=== PATIENT | male | born 1990 | race Caucasian/White ===

== ENCOUNTER 2023-12-21 18:18 | Emergency (ER) | payer SELFPAY ==
[2023-12-21 18:18] VITALS: BP 137/81; PULSE 92; RESP 18; TEMP 36.9; O2SAT 99; BMI 23.7
[2023-12-21 22:18] VITALS: BP 122/88; PULSE 93; RESP 16; O2SAT 100
[2023-12-21] MEDS: Ondansetron ODT 4 MG Tablet PO (22:35)
[2023-12-21] MEDS: morphine 10 MG/ML Syringe 8 MG IM (22:35)
[2023-12-21] MEDS: Amox/Clavulanate 875 MG Tablet PO (22:35)
[2023-12-21] MEDS: oxyCODONE 5 MG Tablet 10 MG PO (23:20)
[2023-12-21 23:22] VITALS: BP 118/65; PULSE 79; RESP 18; TEMP 37.1; O2SAT 100
== END 2023-12-21 23:23 | disposition home or self-care (01) ==
PROVIDERS: Emergency Provider Emergency Medicine; Visit Provider Emergency Medicine
DX: K04.7 Periapical abscess without sinus (principal); K02.9 Dental caries, unspecified
CPT/HCPCS: 41800; 99282